=== PATIENT | male | born 1965 | race Caucasian/White ===

== ENCOUNTER 2023-09-11 16:17 | Outpatient (CLI) | payer OTHER, SELFPAY | END 2023-09-11 16:18 | disposition home or self-care (01) | PROVIDERS: PCP Family Medicine; Visit Provider Family Medicine | DX: Z00.00 Encounter for general adult medical examination without abnormal findings (principal); I10 Essential (primary) hypertension; Z13.6 Encounter for screening for cardiovascular disorders; Z12.5 Encounter for screening for malignant neoplasm of prostate | CPT/HCPCS: 80048; 80061; 84153 ==

== ENCOUNTER 2024-06-28 09:09 | Outpatient (CLI) | payer BC, SELFPAY ==
--- OUTSIDE RECORDS SUMMARY | 2024-06-28 09:12 | XMS_ITS | Clinical Summary ---
Author Organization [facility] Address [address], [place] [address] Care Team Providers Care Test Developer Name Role Phone Jac Araiza MD Primary Care Provider Source Comments You are receiving this document as you are listed as the primary care provider,follow-up provider, or the patient has been referred to you for consultation.This is in compliance with the Medicare and[facility] EHR Incentive Program,which states Providers who transition their patient to another setting of careor provider of care or refers their patient to another provider of care shouldprovide summary care record for each transition of care or referral. [facility] Allergies No known active allergies Medications No known medications Social History Tobacco Use Types Packs/Day Years Used Date Smoking Tobacco: Never Tobacco Cessation:Counseling Given: Not Answered Sex and Gender Information Value Date Recorded Sex Assigned at Not on file Gender Identity Not on file Sexual Orientation Not on file Last Filed Vital Signs Vital Sign Reading Time Taken Comments Blood Pressure - - Pulse - - Temperature - - Respiratory Rate - - Oxygen Saturation - - Inhaled Oxygen Concentration - - Weight 99.8 kg (220 lb) 07/21/2022 3:26 PM CDT Height 180.3 cm (5' 11) 07/21/2022 3:26 PM CDT Body Mass Index 30.68 07/21/2022 3:26 PM CDT Plan of Treatment Health Maintenance Due Date Last Done Comments Colon Cancer Screening Plan Due 1964 Hep C Screening (Preventive Services) 1964 MTM Covered 1964 PSA Screening Discussion 1964 HIV Screening (Preventive Services) 1980 Adult Preventive Visit 02/07/1982 Cholesterol 02/07/1999 Zoster/Shingles (2 of 2) 02/25/2021 12/31/2020 COVID-19 Vaccine (4 - 2022-2 4 season) 2023 12/20/2021, 03/08/2021, 02/15/2021 Influenza (#1) 2024 08/17/2013 DTaP/Tdap/Td (4 - Tdap) 12/31/2030 01/01/20 21, 10/18/2006, 12/19/2005 HepA Aged Out No longer eligi ble based on patient's age to complete this topic HepB Aged Out No longer eligi ble based on patient's age to complete this topic Hib Aged Out No longer eligi ble based on patient's age to complete this topic IPV (Polio) Aged Out No longer eligi ble based on patient's age to complete this topic MCV4 Aged Out No longer eligi ble based on patient's age to complete this topic Pneumococcal Aged Out No longer eligi ble based on patient's age to complete this topic Care Teams Test Developer Relationship Specialty Start Date End Date Jac Araiza MD [address] [facility] [address] [place] [address] PCP - General 02/01/11
--- OUTSIDE RECORDS SUMMARY | 2024-06-28 09:12 | XMS_ITS | Clinical Summary ---
Author Organization [facility] Address [place], [place] [address] Care Team Providers Care Price Economist Name Role Phone Hany De Oliveira MD Primary Care Provider [phone] Allergies No known active allergies Medications Medication Sig Dispensed Refills Start Date End Date Status CIALIS 5 mg tabletIndications:Erec tile dysfunction, unspecified erectile dysfunction type TAKE TWO TABLETS BY MOUTH DAILY 30 MINUTES BEFORE SEXUAL ACTIVITY NEEDED. 28 tablet 1 12/15/2016 Active benzonatate (TESSALON PERLES) 100 mg capsuleIndications:Bro nchitis with bronchospasm Take 1 capsule by mouth 3 times daily if needed for Cough. 30 capsule 08/07/2017 Active albuterol HFA (PROAIR HFA) 90 mcg/actuation inhalerIndications:Bro nchitis with bronchospasm Inhale 1-2 Puffs by mouth every 6 hours if needed. 1 Inhaler 08/07/2017 Active codeine-guaiFENesin (ROBITUSSIN AC) 10-100 mg/5 mL liquid TAKE 5 ML BY MOUTH EVERY 4 HOURS OR NEEDED 0 01/15/2018 Active ondansetron (ZOFRAN ODT) 8 mg disintegrating tablet TAKE ONE TABLET BY MOUTH THREE TIMES DAILY OR NEEDED 0 01/15/2018 Active Active Problems Problem Noted Date Diagnosed Date Screening for lipoid disorders 12/15/2016 Screening for prostate cancer 12/15/2016 Routine adult health maintenance 05/31/2015 Overview: Colonoscopy 05/2015 benign ulcer on cecum repeat in 10 years DDD (degenerative disc disease), lumbar 08/03/20 13 Spondylolisthesis of lumbar region L4-5 & L5-S1 08/03/2013 Erectile dysfunction 08/03/2013 Immunizations Name Administration Dates Next Due Influenza, IIV3 (Age >=3 years) 08/17/2013 Measles 03/07/1977 Td (Age >=7 Years) 12/19/2005 Tdap 12/19/2005 Family History Medical History Relation Name Comments Good Health Father Cancer-colon Maternal Grandfather Cancer-colon Maternal Uncle Good Health Mother Unknown Other nephew cystic fibrosis Unknown Paternal Grandfather brain c ancer Relation Name Status Comments Father Alive Maternal Grandfather Maternal Uncle Mother Other nephew Alive Paternal Grandfather Social History Tobacco Use Types Packs/Day Years Used Date Smoking Tobacco: Never Smokeless Tobacco: Never Tobacco Cessation:Counseling Given: Yes Alcohol Use Standard Drinks/Week Comments Yes 0 (1 standard drink = 0.6 oz pur e alcohol) 12 per week Sex and Gender Information Value Date Recorded Sex Assigned at Not on file Gender Identity Not on file Sexual Orientation Not on file Obstetrics History Last Filed Vital Signs Vital Sign Reading Time Taken Comments Blood Pressure 128/86 01/27/2018 4:19 PM CDT Pulse 65 01/27/2018 4:19 PM CDT Temperature 36.6 ??C (97.9 ??F) 01/27/2018 4:19 PM CD T Respiratory Rate - - Oxygen Saturation 97% 01/27/2018 4:19 PM CDT Inhaled Oxygen Concentration - - Weight 99.7 kg (219 lb 12.8 oz) 01/27/2018 4:19 PM CDT Height 179 cm (5' 10.47) 01/27/2018 4:19 PM CDT Body Mass Index 31.12 01/27/2018 4:19 PM CDT Plan of Treatment Health Maintenance Due Date Last Done Comments Depression screening for age 12+ 1976 HIV for age 15-65 02/07/1979 Hepatitis C screening for age 18-79 02/07/1982 Zoster (shingles) series for age 50+ (1 of 2) 02/07/2014 Tetanus booster 12/19/2015 12/19/2005, 12/19/2005 BMI (ht and wt on same day) for age 18+ 01/27/2019 01/27/2018, 08/07/2017 Lipids for age 45-75 05/16/2020 05/16/2015, 08/10/2013, 01/10/2009 COVID-19 vaccine series ( season) 2023 Influenza for age 50-64 07/03/2024 08/17/2013 Colonoscopy through age 75 05/25/202505/25 (Completed [facility] of [facility]) Tdap Completed 12/19/2005 Pneumococcal series for age 6-64 Aged Out No longer eligible based on patient's age to complete this topic Procedures Procedure Name Priority Date/Time Associated Diagnosis Comments LIPID PANEL W REFLEX MEASURED LDL Routine 05/16/2015 7:04 AM CDT Screening for lipoid disorders from Last 3 Months or Most Recently Relevant to Health Maintenance Results * LIPID PANEL W REFLEX MEASURED LDL (05/16/2015 7:04 AM CDT) CHOLESTEROL,TOTAL 182 100 - 199 mg/dL 05/16/2015 8:24 AM CDT [facility] TRIGLYCERIDES 113 <150 mg/dL 05/16/2015 8:24 AM CDT [facility] HDL CHOLESTEROL 45 >40 mg/dL 05/16/2015 8:24 AM CDT [facility] NON-HDL CHOLESTEROL 137 <145 mg/dl 05/16/2015 8:24 AM CDT [facility] CHOL/HDL RATIO 4.04 <4.50 05/16/2015 8:24 AM CDT [facility] LDL CHOLESTEROL 114 <=130 mg/dL 05/16/2015 8:24 AM CDT [facility] PATIENT STATUS FASTING 05/16/2015 8:24 AM CDT [facility] Blood specimen (specimen) BLOOD SPECIMEN / Unknown Venipuncture / Unknown 05/16/2015 7:04 AM CDT 05/16/2015 7:04 AM CDT Hany De Oliveira MD CHEMISTRY [facility] [address] [place] [address], from Last 3 Months or Most Recently Relevant to Health Maintenance Care Teams Price Economist Relationship Specialty Start Date End Date Hany De Oliveira MD PCP - General Family Practice 07/06/13
== END 2024-06-28 09:10 | disposition home or self-care (01) ==
PROVIDERS: PCP Family Medicine; Visit Provider Family Medicine
DX: I10 Essential (primary) hypertension (principal); Z12.5 Encounter for screening for malignant neoplasm of prostate; Z13.220 Encounter for screening for lipoid disorders
CPT/HCPCS: 80048; 80061; G0103

== ENCOUNTER 2025-06-28 08:20 | Outpatient (CLI) | payer OTHER, SELFPAY | END 2025-06-28 08:21 | disposition home or self-care (01) | PROVIDERS: PCP Family Medicine; Visit Provider Family Medicine | DX: Z00.00 Encounter for general adult medical examination without abnormal findings (principal); I10 Essential (primary) hypertension; E78.5 Hyperlipidemia, unspecified; Z12.5 Encounter for screening for malignant neoplasm of prostate | CPT/HCPCS: 80048; 80061; 84460; G0103 ==